=== PATIENT | male | born 2000 | race Caucasian/White ===

== ENCOUNTER → 2019-05-17 | Day surgery (SDC) | payer OTHER ==
[~2019-05-17] MED LIST: OXYCODONE HCL 55 MG PO
--- NOTE | 2019-05-20 15:07 | PATH ---
[address] [address] PATHOLOGY RPT PROCEDURE Name: KASIA SUERO Room: [facility]#: [id number] Admission: 05/17/19 Date of : 89 Discharge: Report #: [id number] Path Case #: [id number] [facility] Accession Number: [id number] . 01 Material submitted: . gallbladder - GALLBLADDER WITH CONTENTS . 01 Clinical history: . Epigastric abdominal pain, chronic cholecystitis. . 02 Diagnosis: "Gallbladder with contents", cholecystectomy: - Chronic cholecystitis. (CLW/db; 05/20/2019) LBQ 05/20/2019 1127 Local . 02 Electronically signed: . Thuy Hoep MD, Pathologist NPI- [id number] . 01 Gross description: . Received in formalin labeled "Kasia Suero, gallbladder with contents" is an intact cholecystectomy specimen measuring 7.2 x 2.8 x 2.5 cm. The serosa is small-green and smooth and the specimen is opened to reveal dark green velvety mucosa without polyps or masses. The average wall thickness is 0.1 cm. Calculi are not identified. [employer] sections of the fundus and body and the cystic duct margin are submitted in A1. [place] [place] [facility] 05/19/2019 [facility] Local . 02 Pathologist provided ICD-10: K81.1 . 02 CPT . 845771 Specimen Comment: A courtesy copy of this report has been sent to [phone] Specimen Comment: [id number] Specimen Comment: Report sent to / DR MORRISON Specimen Comment: A duplicate report has been generated due to demographic updates. Performed at: [address], [place], [place] [id number] MD Huey Lorenzana MD Phone: [phone] Performed at: 02 [facility] [address], [place] [id number] [address] [address] PATHOLOGY RPT PROCEDURE Name: KASIA SUERO Room: [facility]#: [id number] Admission: 05/17/19 Date of : 89 Discharge: Report #: [id number] Path Case #: [id number] MD Martin Rodgers [place] Phone: [phone]
--- NOTE | 2019-05-25 12:43 | OP ---
[address] [address] OPERATIVE REPORT Name: KASIA SUERO Room: [facility]#: [id number] Admission: 05/17/19 Attend Phys: Marcia Espana Discharge: Date of : 89 Report #: [id number] THIS REPORT FOR: //name// CC: Felicita Maldonado DATE OF SERVICE: 05/17/2019 SURGEON: Hung Yanez DO [employer] WORKER FITTER: Lexx Monae. PREOPERATIVE DIAGNOSIS: Cholecystitis. POSTOPERATIVE DIAGNOSIS: Cholecystitis. INDICATIONS: The patient presented as an outpatient to our clinic with complaints of chronic abdominal pain, bloating, and nausea. He had undergone a right upper quadrant ultrasound and PIPIDA scan revealing an ejection fraction in the high 90's. The patient's history of present illness and physical exam was consistent with biliary dyskinesia. Risks and benefits of surgery were explained to the patient and his mother and they elected to proceed with the operation. Risks of bleeding, infection, damage to nearby structures including the common bile duct and bowel were explained in detail. OPERATIVE DESCRIPTION: The patient was taken to the operating theater and placed in the supine position. General anesthesia was induced and the patient did have some bradycardia with induction that quickly resolved. Bilateral sequential compression devices were placed and preoperative antibiotics were given. A timeout was performed and all were in agreement. The patient's abdomen was prepped and draped in standard sterile fashion. An infraumbilical incision was made using an 11 blade scalpel and the soft tissue was dissected using S retractors until the midline fascia was appreciated. The midline fascia was incised using electrocautery and elevated with Tami clamps. The abdomen was entered bluntly using a hemostat. The Stay sutures using 0 Vicryl were placed on the fasial edges. The Liberty trocar and the camera were introduced. Abdomen was insufflated to 15 mmHg. There were no injuries present upon entry to the abdomen and patient was then placed in the head up, left side down position. Upon visualization of the right upper quadrant, there was some inflammatory fluid around the gallbladder. There were no significant adhesions. The gallbladder was grasped and elevated anteriorly and superiorly. Next, Rose's pouch was grasped and taken medial and lateral and the lateral gallbaldder peritoneum was taken down using electrocautery. [place] [address] OPERATIVE REPORT Name: KASIA SUERO Room: [facility]#: [id number] Admission: 05/17/19 Attend Phys: Marcia Espana Discharge: Date of : 89 Report #: [id number] was then moved inferiorly and medially and the medial gallbladder peritoneum was taken down using electrocautery. The cystic duct and cystic artery were dissected from surrounding structures using [place] dissectors. Once two structures and 2 structures only were appreciated entering the gallbladder, the critical view was obtained. The cystic duct and cystic artery were clipped three time using endoclips on the proximal side and a single clip was placed on the distal side of each structure. These two structures were then transected using EndoShears between the proximal and distal clips. The gallbladder was then elevated superiorly and dissected off the gallbladder fossa using electrocautery. The gallbladder was then placed into an EndoCatch bag. The gallbladder fossa was visualized and appeared hemostatic. The cystic duct and artery stump clips were intact. The right upper quadrant was irrigated and suctioned out. The ports were then removed under direct visualization. The camera and Liberty port were then removed and the gallbladder and EndoCatch bag were removed from the abdomen and sent for pathology. Next in the infraumbilical fascia was closed using 0 Vicryl in a nwnpoo-li-tjqee fashion. All skin incisions were closed using 4-0 Vicryl and dressed with Steri-Strips, 4 x 4's, and Tegaderm. This concluded the procedure. All sponge, needle and instrument counts were correct x 2. ESTIMATED BLOOD LOSS: 5 mL. ANESTHESIA: General endotracheal anesthesia. SPECIMENS: Gallbladder. DRAINS: None. DISPOSITION: The patient was extubated in the operating theater and taken to the PACU in stable condition. <ELECTRONICALLY SIGNED> By: Hung Maldonado DO 05/25/19 1243 [id number] Maldonado DO /nt
== END | disposition home or self-care (01) ==
LOC: M.SUR 06:27
DX: K81.1 Chronic cholecystitis (principal); Z98.890 Other specified postprocedural states; Z79.891 Long term (current) use of opiate analgesic; Z82.49 Family history of ischemic heart disease and other diseases of the circulatory system